=== PATIENT | male | born 1965 | race Caucasian/White ===

== ENCOUNTER 2019-09-23 20:01 | Inpatient (IN) | payer SELFPAY ==
[~2019-09-23] VITALS: Ht 182.9 cm; Wt 76.7 kg
[2019-09-23 20:01] VITALS: BP 128/81
--- NOTE | 2019-09-23 20:04 | NUR ---
PT KALIE BLS TO ER BED 08
[2019-09-23] MEDS ORDERED: DEXTROSE 50% 50 ML SYR IVP ONE ×2 (20:15→22:00)
[2019-09-23] MEDS ORDERED: NACL 0.9% 1,000 ML IV ONE ×2 (20:15→22:00)
--- NOTE | 2019-09-23 20:18 | NUR ---
54 Y/O M BIBA TO ER FOR ALCOHOL INTOXICATION. GCS 14 E4,M6V4, CONFUSED. PT ABLE TO STATE NAME AND DATE OF . PT ADMITTED TO SMOKING MARIJUANA AND DRINKING ALCOHOL. PT UNABLE TO RECALL WHAT HE HAD TO DRINK AND WHAT TIME HE STARTED. VSS. DENIES ALLERGIES. DENIES ANY MEDICAL HISTORY. HOB ELEVATED, BED IN LOWEST POSITION, BED RAILS UP X2. BS 49. ERMD MADE AWARE OF PT STATUS.
--- NOTE | 2019-09-23 20:30 | NUR ---
LAB AT BEDSIDE FOR BLOOD DRAW
--- NOTE | 2019-09-23 20:37 | NUR ---
URINAL PROVIDED AT BEDSIDE
[2019-09-23 20:52] LABS: BASOPHILS % (AUTO) 1.1 % (0.0-2.0); EOSINOPHILS # (AUTO) 0.1 K/uL (0-0.4); EOSINOPHILS % (AUTO) 1.3 % (0.0-4.0); HEMATOCRIT 33.1 % (36-52); HEMOGLOBIN 11.2 g/dL (12.0-18.0); LYMPHOCYTES # (AUTO) 1.7 K/uL (2.0-11.5); LYMPHOCYTES % (AUTO) 41.4 % (20.5-51.1); MEAN CORPUSCULAR HEMOGLOBIN 34 pg (27-31); MEAN CORPUSCULAR HGB CONC 34 g/dL (33-37); MEAN CORPUSCULAR VOLUME 99.8 fL (80-94); MONOCYTES # (AUTO) 0.3 K/uL (0.8-1.0); MONOCYTES % (AUTO) 7.6 % (1.7-9.3); NEUTROPHILS # (AUTO) 2.1 K/uL (1.8-7.7); NEUTROPHILS % (AUTO) 48.6 % (42.2-75.2); PLATELET COUNT (AUTO) 151 K/uL (140-450); RED BLOOD CELL COUNT(AUTO) 3.32 MIL/uL (4.20-6.10); RED CELL DISTRIBUTION WIDTH 14.6 % (11.6-13.7); WHITE BLOOD COUNT (AUTO) 4.2 K/uL (4.8-10.8)
[2019-09-23 20:59] LABS: ANION GAP 19.2 (8-16); CARBON DIOXIDE 18.3 mmol/L (21-32); POTASSIUM 3.5 mmol/L (3.5-5.1)
[2019-09-23 21:05] LABS: ALBUMIN 3.6 g/dL (3.4-5.0); TOTAL BILIRUBIN 0.3 mg/dL (0.0-1.0)
--- NOTE | 2019-09-23 21:55 | NUR ---
BLOOD SUGAR 91. ERMD MADE AWARE.
--- NOTE | 2019-09-23 22:10 | NUR ---
PT PROVIDED URINE SAMPLE
[2019-09-23 22:52] LABS: APPEARANCE,URINE CLEAR (CLEAR); BILIRUBIN,URINE NEGATIVE (NEGATIVE); BLOOD, URINE NEGATIVE (NEGATIVE); COLOR,URINE YELLOW (YELLOW); LEUKOCYTE ESTERASE ,URINE NEGATIVE (NEGATIVE); NITRITE, URINE NEGATIVE (NEGATIVE); PH,URINE 5.5 (5.0-9.0); UGLUCOSE TRACE (NEGATIVE)
--- NOTE | 2019-09-23 23:00 | NUR ---
PT RESTING IN BED, EASILY ARROUSABLE. VSS. WILL CONTINUE TO MONITOR.
[2019-09-23 23:18] LABS: BARBITURATE, URINE NEG. ng/ml (NEG <=200); BENZODIAZEPINE, URINE NEG. ng/mL (NEG <=200); CANNABINOID, URINE POS. ng/mL (NEG <=50); COCAINE, URINE NEG. ng/mL (NEG <=300); OPIATE, URINE NEG. ng/mL (NEG <=2000); PHENCYCLIDINE SCREEN,URINE NEG. ng/mL (NEG <=25)
--- NOTE | 2019-09-24 | NUR ---
PT RESTING IN BED. VSS. WILL CONTINUE TO MONITOR.
--- NOTE | 2019-09-24 00:05 | NUR ---
BS 112. DIALN MADE AWARE.
--- NOTE | 2019-09-24 01:02 | NUR ---
Cathy ruelas in ED - 09/24/19 at 0102 by [email or web address] BLOOD SUGAR 191. DILAN MADE AWARE.
--- NOTE | 2019-09-24 01:02 | NUR ---
BLOOD SUGAR 71. ERMD MADE AWARE
--- NOTE | 2019-09-24 01:02 | NUR ---
Cathy ruelas in ED - 09/24/19 at 0115 by [email or web address] BLOOD SUGAR 91. MEENAD MADE AWARE.
[2019-09-24] MEDS ORDERED: DEXTROSE 50% 50 ML SYR IVP ONE (01:05)
[2019-09-24] MEDS ORDERED: DEXT 5% / NACL 0.9% 500 ML IV ONE (01:05)
--- NOTE | 2019-09-24 01:30 | NUR ---
PT LEFT TO CT VIA KENDRA WITH ERICKA BHAT
--- NOTE | 2019-09-24 01:49 | NUR ---
PT RETURNED FROM CT
--- NOTE | 2019-09-24 01:55 | NUR ---
XRAY AT BEDSIDE
[2019-09-24] MEDS ORDERED: MORPHINE SULFATE 2 MG/ML SYR IVP PRN (02:10)
[2019-09-24] MEDS ORDERED: ACETAMINOPHEN 325 MG TAB PO PRN (02:10)
[2019-09-24] MEDS ORDERED: ONDANSETRON 4 MG/2 ML VIAL IM/IVP PRN (02:10)
[2019-09-24] MEDS ORDERED: HYDROcodone/APAP 7.5/325 MG 1 TAB PO PRN (02:10)
[2019-09-24] MEDS ORDERED: DEXT 5% /NACL 0.9% 1,000 ML IV ONE (02:25)
[2019-09-24] MEDS ORDERED: DEXTROSE 50% 50 ML SYR IVP PRN (02:25)
[2019-09-24 02:40] VITALS: BP 129/84
--- NOTE | 2019-09-24 02:40 | NUR ---
ADMITTED A 54M FROM ER. CAME BY KENDRA DUE TO ALCOHOL INTOXICATION AND HYPOGLYCEMIA. ON TELE MONITOR-SR. AWAKE,ALERT AND ORIENTED X4. AMBULATORY .WITH IVF INFUSING WELL ON THE LT HAND G#20 CLEAR AND PATENT. PT WITH SLIGHT SHAKING OF HANDS. BUT NO C/O ANY DISCOMFORT NOTED. ORIENTED TO HOSPITAL ROUTINES. BED ON LOW POSITION,FREQ ROUNDS NEEDED. SIDE RAILS UP X2 . CALL LIGHT WITHIN EASY REACH. WILL CONTINUE TO MONITOR.
--- NOTE | 2019-09-24 02:45 | NUR ---
TRANSFER OF CARE AND REPORT GIVEN TO BELINDA RN
--- NOTE | 2019-09-24 02:45 | NUR ---
APatient will be admitted to care of DR. VILA. Admited to TELE. Will go to room 121A. Belongings list completed. Report to YISEL TREVINO.
[2019-09-24 02:52] LABS: CHOL/HDL RATIO 2.3 (1-4.5); FREE T4 (FREE THYROXINE) 0.89 ng/dL (0.76-1.46); MAGNESIUM 2.2 mg/dL (1.8-2.4); PHOSPHORUS 3.6 mg/dL (2.5-4.9); THYROID STIMULATING HORMONE 0.81 uIU/mL (0.34-3.74)
--- NOTE | 2019-09-24 02:55 | NUR ---
DR. RENDON ,RESIDENT CAME AND ASSESS PT .
[2019-09-24] MEDS: BLOOD GLUCOSE MONITORING 1 DEV DEV FS SCH ×9 (03:02→20:52)
--- NOTE | 2019-09-24 03:02 | NUR ---
BLOOD SUGAR CHECKED RESULT 94. WILL CONTINUE TO MONITOR.
--- NOTE | 2019-09-24 03:25 | NUR ---
PT REQUESTED FOR SOME JUICE. GIVNE APPLE JUICE 360 ML.
--- NOTE | 2019-09-24 04:04 | NUR ---
BLOOD SUGAR WAS CHECKED AT THIS TIME RESULT 130. WILL CONTINUE TO MONITOR BS.
[2019-09-24 04:15] LABS: PROTHROMBIN TIME 9.4 secs (10.8-13.4)
[2019-09-24] MEDS: LORazepam 2 MG/ML VIAL IVP SCH ×4 (05:00→20:50)
--- NOTE | 2019-09-24 06:00 | NUR ---
TALKED TO DR. RENDON ,RESIDENT REGARDING THE GLUCOSE CHECK OF Q 1 HR. MADE AWARE TO HAVE FREQUENCY CHANGE IF WANTS TO KEEP PT HERE.
--- NOTE | 2019-09-24 06:13 | NUR ---
LATEST BLOOD SUGAR THIS AM 98. WILL CONTINUE TO MONITOR.
--- NOTE | 2019-09-24 07:11 | NUR ---
ENDORSED PT IN STABLE CONDITION TO AM NURSE.
--- NOTE | 2019-09-24 07:16 | NUR ---
RECEIVED REPORT FROM NIGHT RN. PATIENT IS FULL CODE, NKA. AAOX4, ROOM AIR. PATIENT HAS A LEFT HAND 20G WITH D5NS INFUSING AT 100ML/HR. PENDING CONSULT WITH DR CROW TODAY. PATIENT IS CURRENTLY AWAKE AND IN BED, NO RESP DISTRESS NOTED. WILL CONTINUE WITH PLAN OF CARE FOR THE DAY.
[2019-09-24 08:00] VITALS: BP 124/76
--- NOTE | 2019-09-24 08:30 | NUR ---
BLOOD SUGAR OF 71. NO ACTION NEEDED
--- NOTE | 2019-09-24 08:30 | NUR ---
PATIENT HAS BEEN SCREENED AND CATEGORIZED MODERATE NUTRITION RISK. PATIENT WILL BE SEEN WITHIN 3-5 DAYS OF ADMISSION. 09/26/19 09/28/[address]
[2019-09-24] MEDS ORDERED: INSULIN LISPRO SLIDING SCALE 100 UNITS/ML VIAL SUBQ PRN (09:00)
[2019-09-24] MEDS ORDERED: MULTIVITAMIN-12 10 ML, THIAMINE 100 MG, MAGNESIUM SULFATE 50% 2,000 MG, FOLIC ACID 1 MG... IV SCH ×5 (09:00)
[2019-09-24] MEDS: THIAMINE 100 MG TAB PO SCH (09:20)
[2019-09-24] MEDS: MULTIVITAMIN 1 TAB PO SCH (09:20)
[2019-09-24] MEDS: LACTOBACILLUS RHAMNOSUS GG 1 EACH CAP PO SCH (09:20)
[2019-09-24] MEDS: FOLIC ACID 1 MG TAB PO SCH (09:21)
--- NOTE | 2019-09-24 09:24 | NUR ---
ADMINISTERED MORNING MEDICATION. PATIENT TOLERATED WELL. BEGAN INFUSION OF BANANA BAG.
--- NOTE | 2019-09-24 09:45 | NUR ---
PATIENT AMBULATED TO RESTROOM. GAIT STEADY UPON AMBULATION
--- NOTE | 2019-09-24 11:00 | NUR ---
PATIENT IS RESTING QUIETLY AWAKE IN BED. NO COMPLAINTS AT THIS TIME. STATES HE IS CONFUSED ON HOW HE GOT TO THE HOSPITAL AND THAT THE DOCTOR DIDN'T INFORM HIM ON WHAT HAPPENED.
[2019-09-24 11:39] LABS: ANION GAP 12.4 (8-16); CARBON DIOXIDE 24.3 mmol/L (21-32); CREATININE 0.8 mg/dL (0.7-1.3); POTASSIUM 3.7 mmol/L (3.5-5.1)
[2019-09-24 12:00] VITALS: BP 144/87
--- NOTE | 2019-09-24 12:30 | NUR ---
BLOOD SUGAR OF 75. NO INSULIN COVERAGE NEEDED.
--- NOTE | 2019-09-24 14:21 | NUR ---
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 Note: Name: REFUSED Home Tel: N/A Relationship: N/A Pre-Admission Living Arrangements: Lives with Other Other: LIVES IN [place] Prior ADL Independent Current Home Health Name/Tel: N/A Current DME/02 Name/Tel: N/A Current Hospice Name/Tel: N/A Current Dialysis Name/Tel: N/A Healthcare Decision Maker: Patient Advance Directive No - REFUSED Physician Orders for Life Sustaining Treatment Form No Patient/Family Have Educational Needs No Information Taught: Advance Directive Community Resources Person Taught: Patient Teaching Tools: Verbal Factors Affecting Learning: None Participation Level: Refused Evaluation: Verbalizes Understanding Discipline: Case Mgt/Social Svcs Tentative Discharge Plan/Destination: No Needs Identified Will require assistance post discharge: No Referred to Mid Level Net Developer: No Tentative Discharge Plan Summary: Patient is a 54 year old male admitted for ETOH intoxication. Patient was admitted from home. Patient denies medical hx. Patient stated that he does not have a PCP. SW verified demographics with patient. Patient stated that he was on his way to [place] on a bus when he began drinking and was brought to [facility]. Patient stated that he is an alcoholic but did not want to specify how much patient drinks. Patient refused substance abuse resources because patient stated he was on his way to [place] before hospitalization occurred. Patient denies mental health history or SI/HI. Patient stated that his tentative plan after discharge is to take a bus to [place]. No further needs identified. Signature: MABLE Baldwin Date: Sep 24, 2019 Time: 14:21
--- NOTE | 2019-09-24 15:13 | NUR ---
PATIENT IS ASKING WHEN HE WILL BE DISCHARGED. UPON ASKING HOW PATIENT IS FEELING, PATIENT STATED "I FEEL PERFECTLY FINE".
[2019-09-24 16:00] VITALS: BP 150/94
--- NOTE | 2019-09-24 16:30 | NUR ---
BLOOD SUGAR OF 79. NO INSULIN NEEDED
--- NOTE | 2019-09-24 18:14 | NUR ---
PT SLEEPING IN BED. NO COMPLAINTS AT THIS TIME. ALL NEEDS HAVE BEEN MET. WILL ENDORSE TO NIGHT NURSE FOR CONTINUITY OF CARE
--- NOTE | 2019-09-24 19:25 | NUR ---
RECEIVED BEDSIDE REPORT FROM DAY SHIFT NURSE. PATIENT IS AWAKE, ALERT, AND COOPERATIVE. RESPIRATION EVEN UNLABORED ON ROOM AIR. NO DISTRESS NOTED. SKIN IS WARM AND DRY. IV PATENT AND INTACT. DENIES PAIN. PLAN OF CARE WAS DISCUSSED. ALL SAFETY MEASURES IN PLACE. BED IS AT LOW POSITION. CALL LIGHT WITHIN REACH AND VERBALIZE ITS USE. WILL CONTINUE TO MONITOR.
[2019-09-24 20:00] VITALS: BP 143/88
--- NOTE | 2019-09-24 20:00 | NUR ---
INITIAL ASSESSMENT DONE. VITALS WERE TAKEN. PATIENT IN STABLE CONDITION. NO DISTRESS NOTED. WILL CONTINUE TO MONITOR.
--- NOTE | 2019-09-24 20:53 | NUR ---
ALL SCHEDULED MEDS WERE GIVEN PER ORDER. NO ASE NOTED. WILL CONTINUE TO MONITOR.
[2019-09-24] MEDS ORDERED: NACL 0.9% 1,000 ML IV SCH (22:00)
--- NOTE | 2019-09-24 22:14 | NUR ---
CHECKED ON PATIENT. PATIENT WATCHING TV RESPIRATION EVEN UNLABORED ON ROOM AIR. NO DISTRESS NOTED. WILL CONTINUE TO MONITOR.
--- NOTE | 2019-09-24 23:00 | NUR ---
CHECKED ON PATIENT. PATIENT SLEEPING RESPIRATION EVEN UNLABORED ON ROOM AIR. NO DISTRESS NOTED. WILL CONTINUE TO MONITOR.
[2019-09-25] VITALS: BP 155/88
--- NOTE | 2019-09-25 00:11 | NUR ---
VITALS WERE TAKEN. PATIENT IN STABLE CONDITION. NO DISTRESS NOTED. WILL CONTINUE TO MONITOR.
--- NOTE | 2019-09-25 02:45 | NUR ---
CHECKED ON PATIENT. PATIENT SLEEPING RESPIRATION EVEN UNLABORED ON ROOM AIR. NO DISTRESS NOTED. WILL CONTINUE TO MONITOR.
[2019-09-25 04:00] VITALS: BP 145/78
--- NOTE | 2019-09-25 04:00 | NUR ---
VITALS WERE TAKEN. PATIENT IN STABLE CONDITION. NO DISTRESS NOTED. WILL CONTINUE TO MONITOR.
[2019-09-25] MEDS: LORazepam 2 MG/ML VIAL IVP SCH ×2 (05:03→13:00)
--- NOTE | 2019-09-25 06:05 | NUR ---
PATIENT ACCIDENTALLY PULLED OUT HIS IV LINE. NO ACTIVE BLEEDING SEEN. CANNULA TIP INTACT. INSERTED NEW ONE TO THE LEFT HAND 22G.
[2019-09-25] MEDS: BLOOD GLUCOSE MONITORING 1 DEV DEV FS SCH ×2 (06:32→11:30)
[2019-09-25 06:33] LABS: ANION GAP 14.2 (8-16); CARBON DIOXIDE 23.3 mmol/L (21-32); CREATININE 0.7 mg/dL (0.7-1.3); POTASSIUM 3.5 mmol/L (3.5-5.1)
[2019-09-25 06:40] LABS: MAGNESIUM 1.8 mg/dL (1.8-2.4); PHOSPHORUS 2.3 mg/dL (2.5-4.9)
--- NOTE | 2019-09-25 07:00 | NUR ---
RECEIVED REPORT FROM NIGHT RN. PATIENT IS SLEEPING IN BED, VISIBLE CHEST RISE AND FALL. PT HAS NEW IV LINE TO LEFT HAND 22G WITH NS INFUSING AT 60ML/HR. PATIENT IS FULL CODE, NKA. ON ROOM AIR, AAOX4.
--- NOTE | 2019-09-25 07:05 | NUR ---
ENDORSED PATIENT TO DAY SHIFT NURSE. PATIENT IN STABLE CONDITION.
[2019-09-25 07:19] LABS: BASOPHILS # (AUTO) 0.1 K/uL (0.00-0.22); BASOPHILS % (AUTO) 1.3 % (0.0-2.0); EOSINOPHILS # (AUTO) 0.1 K/uL (0-0.4); EOSINOPHILS % (AUTO) 1.8 % (0.0-4.0); HEMATOCRIT 31.2 % (36-52); LYMPHOCYTES # (AUTO) 1.1 K/uL (2.0-11.5); LYMPHOCYTES % (AUTO) 27.8 % (20.5-51.1); MEAN CORPUSCULAR HEMOGLOBIN 34 pg (27-31); MEAN CORPUSCULAR HGB CONC 35 g/dL (33-37); MEAN CORPUSCULAR VOLUME 96.1 fL (80-94); MONOCYTES # (AUTO) 0.6 K/uL (0.8-1.0); MONOCYTES % (AUTO) 15.9 % (1.7-9.3); NEUTROPHILS # (AUTO) 2.1 K/uL (1.8-7.7); NEUTROPHILS % (AUTO) 53.2 % (42.2-75.2); PLATELET COUNT (AUTO) 150 K/uL (140-450); RED BLOOD CELL COUNT(AUTO) 3.24 MIL/uL (4.20-6.10); WHITE BLOOD COUNT (AUTO) 3.9 K/uL (4.8-10.8)
[2019-09-25 08:00] VITALS: BP 151/95
[2019-09-25] MEDS: MULTIVITAMIN 1 TAB PO SCH (08:19)
[2019-09-25] MEDS: THIAMINE 100 MG TAB PO SCH (08:19)
[2019-09-25] MEDS: LACTOBACILLUS RHAMNOSUS GG 1 EACH CAP PO SCH (08:19)
[2019-09-25] MEDS: FOLIC ACID 1 MG TAB PO SCH (08:19)
[2019-09-25] MEDS ORDERED: MULT-405 PO (09:15)
[2019-09-25] MEDS ORDERED: FOLI1TAB90 PO (09:15)
[2019-09-25] MEDS ORDERED: LIB25 PO ×2 (09:15→14:41)
[2019-09-25] MEDS ORDERED: THIA-34 PO (09:15)
--- NOTE | 2019-09-25 13:45 | NUR ---
REMOVED PATIENTS IV LINE, CANNULA INTACT. INITIATED DISCHARGE PAPERWORK PER ORDER.
--- NOTE | 2019-09-25 14:00 | NUR ---
PATIENT HAS BEEN DISCHARGED OFF THE UNIT, ALL BELONGINGS SENT WITH PATIENT. DISCHARGE PAPERWORK SIGNED.
== END 2019-09-25 14:00 | disposition home or self-care (01) | DRG 640 ==
LOC: MED 20:01 → MTU 09-24 02:08
PROVIDERS: ADMIT General Practice; ATTEND General Practice
DX: E16.2 Hypoglycemia, unspecified (principal); G92 Toxic encephalopathy; E87.0 Hyperosmolality and hypernatremia; F10.129 Alcohol abuse with intoxication, unspecified; Y90.9 Presence of alcohol in blood, level not specified; D64.9 Anemia, unspecified; F12.90 Cannabis use, unspecified, uncomplicated; D72.819 Decreased white blood cell count, unspecified; E83.39 Other disorders of phosphorus metabolism; Z60.2 Problems related to living alone
CPT/HCPCS: 36415; 70450; 71045; 80048; 80053; 80305; 81003; 82550; 82948; 83036; 83605; 83690; 83735; 83880; 84100; 84439; 84443; 84681; 85025; 85610; 85730; 87081; 93005; 96361; 96374; 96375; 99285; A9153; G0482; J1815; J2060; J3411; J3475; J3490; J7030; Q0092